=== PATIENT | male | born 2000 | race Caucasian/White ===

== ENCOUNTER 2019-07-16 11:16 | Inpatient (IN) | payer MEDICAID ==
[~2019-07-16] VITALS: Ht 188 cm; Wt 73.0 kg
[2019-07-16] MEDS ORDERED: ESCI20TA PO (12:17)
[2019-07-16] MEDS ORDERED: HYDR-4031 PO (12:18)
[2019-07-16 12:44] VITALS: BP 114/54
[2019-07-16] MEDS ORDERED: INFLUENZA VIRUS VACCINE QVS 2019-20 (3YR+)/PF 60 MCG/0.5 ML SYRINGE IM ONE (12:45)
[2019-07-16 14:04] VITALS: BP 131/95
[2019-07-16 16:03] VITALS: BP 119/85
[2019-07-16] MEDS: LORazepam 2 MG TABLET PO PRN (20:31)
[2019-07-16] MEDS: ZOLPIDEM TARTRATE 10 MG TABLET PO PRN (21:07)
[2019-07-17 06:35] VITALS: BP 139/88
[2019-07-17] MEDS: LORazepam 2 MG TABLET PO PRN ×4 (07:16→21:04)
[2019-07-17 08:13] VITALS: BP 126/72
[2019-07-17 08:28] LABS: BASOPHILS % (AUTO) 1.4 % (0.0-2.0); EOSINOPHILS % (AUTO) 6.6 % (1.0-6.0); HEMATOCRIT 44.7 % (41-53); HEMOGLOBIN 15.3 g/dL (13.5-17.5); LYMPHOCYTES % (AUTO) 52.2 % (22.0-44.0); MEAN CORPUSCULAR HEMOGLOBIN 31.9 pg (26.0-34.0); MEAN CORPUSCULAR HGB CONC 34.2 G/dL (31.0-37.0); MEAN CORPUSCULAR VOLUME 94 fL (80-100); MONOCYTES # (AUTO) 0.7 K/uL (0.1-1.0); MONOCYTES % (AUTO) 11.7 % (2.0-9.0); NEUTROPHILS # (AUTO) 1.6 K/uL (1.8-7.7); NEUTROPHILS % (AUTO) 28.1 % (40.0-70.0); PLATELET COUNT (AUTO) 258 K/uL (150-450); RED BLOOD CELL COUNT(AUTO) 4.78 MIL/uL (4.50-5.90); RED CELL DISTRIBUTION WIDTH 13.5 % (11.5-14.5)
[2019-07-17 08:34] LABS: APPEARANCE,URINE CLEAR (CLEAR); BILIRUBIN,URINE NEGATIVE (NEGATIVE); GLUCOSE, URINE (UA) NEGATIVE (NEGATIVE); KETONES,URINE NEGATIVE (NEGATIVE); LEUKOCYTE ESTERASE ,URINE NEGATIVE (NEGATIVE); NITRATE,URINE NEGATIVE (NEGATIVE); OCCULT BLOOD,URINE NEGATIVE (NEGATIVE); PH,URINE 7.5 (5.0-8.0); PROTEIN,URINE NEGATIVE (NEGATIVE); UROBILINOGEN,URINE 0.2 mg/dL (<=1.0)
[2019-07-17 08:37] LABS: HEMOGLOBIN A1C 5.1 % (4.5-6.2)
[2019-07-17 08:40] LABS: AMPHET/METH SCREEN,URINE NEGATIVE (NEGATIVE); BARBITURATE SCREEN, URINE NEGATIVE (NEGATIVE); BENZODIAZEPINES SCREEN,URINE NEGATIVE (NEGATIVE); CANNABINOID SCREEN,URINE POSITIVE (NEGATIVE); COCAINE SCREEN,URINE NEGATIVE (NEGATIVE); METHADONE SCREEN, URINE NEGATIVE (NEGATIVE); OPIATE SCREEN,URINE NEGATIVE (NEGATIVE)
[2019-07-17 08:46] LABS: PHENCYCLIDINE SCREEN,URINE NEGATIVE (NEGATIVE)
[2019-07-17 08:56] LABS: ALANINE AMINOTRANSFERASE 22 U/L (12-78); ALKALINE PHOSPHATASE 92 U/L (46-116); ANION GAP 6 mmol/L (8-16); ASPARTATE AMINOTRANSFERASE 24 U/L (15-37); BILIRUBIN,TOTAL 0.9 mg/dL (0.1-1.0); CALCIUM, TOTAL 9.6 mg/dL (8.8-10.5); CARBON DIOXIDE 32 mmol/L (22-29); CHLORIDE 104 mmol/L (98-107); CHOLESTEROL 165 mg/dL (131-200); CREATININE 0.83 mg/dL (0.60-1.30); FREE T4 (FREE THYROXINE) 0.86 ng/dL (0.76-1.46); GLOMERULAR FILTR. RATE CALC > 60 mL/min (>60); GLUCOSE,RANDOM 86 mg/dL (70-110); HDL CHOLESTEROL 82 mg/dL (40-60); LDL CHOL (CALC.) 68 mg/dL (0-130); POTASSIUM 4.6 mmol/L (3.5-5.1); SODIUM SERUM 142 mmol/L (136-145); THYROID STIMULATING HORMONE 2.06 uIU/mL (0.36-3.74); TOTAL PROTEIN, SERUM 7.1 g/dL (6.4-8.2); TRIGLYCERIDES 77 mg/dL (15-150); UREA NITROGEN, BLOOD 10 mg/dL (7-18)
[2019-07-17] MEDS ORDERED: ESCITALOPRAM OXALATE 20 MG TABLET PO SCH (09:00)
[2019-07-17] MEDS: HALOPERIDOL 5 MG TABLET PO PRN ×2 (16:53→21:04)
[2019-07-17 17:54] VITALS: BP 130/80
[2019-07-17] MEDS: ZOLPIDEM TARTRATE 10 MG TABLET PO PRN (20:17)
[2019-07-17] MEDS ORDERED: DOCUSATE SODIUM 100 MG CAPSULE PO PRN (23:00)
[2019-07-17] MEDS ORDERED: OMEPRAZOLE 20 MG CAPSULE PO PRN (23:00)
[2019-07-17] MEDS ORDERED: BACITRACIN 28.4 GM OINTMENT TP PRN (23:00)
[2019-07-17] MEDS ORDERED: IBUPROFEN 600 MG TABLET PO PRN (23:00)
[2019-07-17] MEDS ORDERED: ACETAMINOPHEN 325 MG TABLET PO PRN (23:00)
[2019-07-17] MEDS ORDERED: BENZOCAINE/MENTHOL LOZENGE MM PRN (23:00)
[2019-07-17] MEDS ORDERED: ONDANSETRON HCL 4 MG TABLET PO PRN (23:00)
[2019-07-17] MEDS ORDERED: PETROLATUM,WHITE 28 GM JELLY TP PRN (23:00)
[2019-07-17] MEDS ORDERED: ALBUTEROL SULFATE HFA 90 MCG/PUFF 8 GM INHALER IH PRN (23:00)
[2019-07-17] MEDS ORDERED: MAGNESIUM HYDROXIDE SUSPENSION 30 ML UDCUP PO PRN (23:00)
[2019-07-17] MEDS ORDERED: MAG HYDROX/AL HYDROX/SIMETH ES 30 ML SUSPENSION UDCUP PO PRN (23:00)
[2019-07-17] MEDS ORDERED: CloNIDine HCL 0.1 MG TABLET PO PRN (23:00)
[2019-07-17] MEDS ORDERED: LOPERAMIDE HCL 2 MG CAPSULE PO PRN (23:00)
[2019-07-18 08:16] VITALS: BP 110/62
[2019-07-18] MEDS: LITHIUM CARBONATE 300 MG CAPSULE PO SCH ×2 (08:26→16:52)
[2019-07-18] MEDS: ESCITALOPRAM OXALATE 10 MG TABLET PO SCH (08:26)
[2019-07-18] MEDS: DIVALPROEX SODIUM 500 MG DR TABLET PO SCH ×2 (08:26→16:52)
[2019-07-18 16:11] VITALS: BP 118/105
[2019-07-18 16:13] VITALS: BP 116/64
[2019-07-18 16:15] VITALS: BP 120/74
[2019-07-18] MEDS: LORazepam 2 MG TABLET PO PRN ×2 (16:52→20:11)
[2019-07-18] MEDS: ZOLPIDEM TARTRATE 10 MG TABLET PO PRN (20:11)
[2019-07-19 06:41] VITALS: BP 105/54
[2019-07-19 08:16] VITALS: BP 110/61
[2019-07-19] MEDS: LITHIUM CARBONATE 300 MG CAPSULE PO SCH ×2 (08:20→16:27)
[2019-07-19] MEDS: DIVALPROEX SODIUM 500 MG DR TABLET PO SCH ×2 (08:20→16:27)
[2019-07-19] MEDS: ESCITALOPRAM OXALATE 10 MG TABLET PO SCH (08:20)
[2019-07-19] MEDS: HALOPERIDOL 5 MG TABLET PO PRN (14:09)
[2019-07-19] MEDS: LORazepam 2 MG TABLET PO PRN (14:09)
[2019-07-19 16:03] VITALS: BP 111/88
[2019-07-19] MEDS ORDERED: ESCI10TA PO (18:47)
[2019-07-19] MEDS ORDERED: DIVA-78 PO (18:47)
[2019-07-19] MEDS ORDERED: LITH300C3 PO (18:47)
== END 2019-07-19 19:30 | disposition home or self-care (01) | DRG 753 ==
LOC: B3A 13:07
PROVIDERS: ADMIT Psychiatry & Neurology Psychiatry; ATTEND Psychiatry & Neurology Psychiatry
DX: F31.9 Bipolar disorder, unspecified (principal); R45.851 Suicidal ideations; F41.9 Anxiety disorder, unspecified; G47.00 Insomnia, unspecified; K59.00 Constipation, unspecified; Z23 Encounter for immunization
CPT/HCPCS: 80307; 83036; 84439; 84443; 90686

== ENCOUNTER 2020-04-24 23:04 | Emergency (ER) | payer MEDICAID, OTHER ==
[~2020-04-24] VITALS: Ht 185.4 cm; Wt 81.8 kg
[~2020-04-24 23:04] MED LIST: DIVA-112 PO; ESCI-8 PO; LITH300C3 PO
[2020-04-24 23:13] VITALS: BP 127/90
== END 2020-04-25 03:39 | disposition left against medical advice (07) ==
LOC: EMS 23:05
DX: S01.511A Laceration without foreign body of lip, initial encounter (principal); F12.90 Cannabis use, unspecified, uncomplicated; F14.90 Cocaine use, unspecified, uncomplicated; Z79.899 Other long term (current) drug therapy; Y04.0XXA Assault by unarmed brawl or fight, initial encounter; Y93.89 Activity, other specified; Y92.89 Other specified places as the place of occurrence of the external cause; Y99.8 Other external cause status
CPT/HCPCS: Z7502